=== PATIENT | male | born 1970 | race African-American/Black ===

== ENCOUNTER 2018-07-28 11:04 | Inpatient (IN) ==
[2018-07-28] MEDS ORDERED: Magnesium Sulfate Inj 2 GM in Sodium Chlor 0.9% Inj 96 ML IV.SIG ONE ×2 (11:09→12:10)
--- NOTE | 2018-07-28 11:22 | ED ---
HPI General Chief complaint: Shortness of Breath/Dyspnea Stated complaint: SOB Time Seen by Provider: 07/28/18 11:09 Source: patient, EMS and RN notes reviewed Mode of arrival: EMS History of Present Illness HPI narrative: 48yM brought in by EMS for respiratory distress. The patient reportedly has a history of asthma/ COPD, has had shortness of breath for the past several days and has been using a friend's nebulizer and OTC "sinus medications" with minimal relief of symptoms. His family called EMS today. The patient was somnolent on their arrival and remains somnolent here; he has no friends or family members with him and I am unable to obtain any further HPI, ROS, PMH/ PSH/ family or social history. The patient was given 125 mg solumedrol IV, duoneb x 1, and albuterol by EMS prior to arrival. Related Data Previous Rx's Medication Instructions Recorded albuterol sulfate 1.25 mg INHALATION Q6-8H PRN #90 ml 06/18/18 albuterol sulfate 2 inh INHALATION Q6-8H PRN #1 each 06/18/18 prednisone 20 mg PO BID #20 tab 06/18/18 Allergies Allergy/AdvReac Type Severity Reaction Status Date / Time No Known Allergies Allergy Verified 06/18/18 15:43 Review of Systems ROS Unobtainable ROS Unobtainable: unobtainable due to mental status PMFSH History History Provided By: Patient Medical History Medical History COPD (chronic obstructive pulmonary disease) (Acute) Surgical History Surgical History No history of previous surgery (Acute) Social History Social History Substance History: Unable to Obtain Second Hand Smoke Exposure: Yes Smoking Status: Unknown if ever smoked Tobacco Type: Cigarettes How Often Do You Have a Drink Containing Alcohol: Unable to Obtain Recent Travel in [facility] within the Last 8 Weeks: No Recent Out of Country Travel within the Last 8 Weeks: No Immunization History Tetanus Immunization: Unable to Assess Hx Influenza Vaccine This Season: Unable to Assess Exam Const Other: Sleepy, opens eyes to painful stimuli, acute respiratory distress HENMT Head: normocephalic and atraumatic Face and sinus: normal facial exam Eyes General: appearance normal, both eyes and all related structures Other: Pupils pinpoint bilaterally Chest Chest: normal inspection of the chest Resp Other: Moderate respiratory distress, tachypneic, non-verbal Full-field inspiratory and expiratory wheezing bilaterally O2 sats 98% on neb treatment Cardio Rate: regular rate Rhythm: regular rhythm GI Inspection: non-distended Palpation: soft and nontender Skin General: no rashes or lesions noted Neuro Other: Sleepy, arousable to painful stimuli, GCS 9 ([id number]), protecting airway Psych Other: Unable to assess Course Reevaluation(s) Reevaluation #1: Patient's is now at bedside, says the patient has had difficulty breathing for the past 3 days but became somnolent this morning. No history of intubations in the past, does not follow with a primary care doctor. (+) smoking history and polysubstance abuse. Patient still has significant wheezing, mental status unchanged, O2 sats mid 90s on nasal cannula. Will give another mag rider, albuterol neb, and SC terbutaline. Time: 12:11 Initial Documented Vital Signs Pulse Rate 88 07/28/18 11:10 Respiratory Rate 15 07/28/18 11:10 Blood Pressure 104/75 07/28/18 11:10 Pulse Oximetry 94 L 07/28/18 11:10 Last Documented Vital Signs Temperature 98.1 F 07/28/18 11:14 Pulse Rate 93 H 07/28/18 12:16 Respiratory Rate 14 07/28/18 12:16 Blood Pressure 104/75 07/28/18 11:14 Pulse Oximetry 98 07/28/18 11:29 Medical Decision Making [facility] Narrative Medical decision making narrative: Assessment: 48yM presenting with respiratory distress Plan: EKG and monitor CXR Nebs, IV magnesium, has already been given steroids prior to arrival ABG Labs Urine drug screen No acute indication for intubation at this point but patient remains at high risk for respiratory failure given level of respiratory distress Addendum: This patient requires ICU level of care for status asthmaticus. Case discussed with Dr. Pat. Patient's understands and agrees with plan. Medical Screen Exam Complete: Yes Emergency Medical Condition: Yes Differential Diagnosis Differential Diagnosis: Differential diagnosis includes, but is not limited to: COPD/ asthma exacerbation, pneumonia, pleural effusion, hypoxia/ hypercarbia, overdose (illicit drugs or OTC medications), hyperammonemia Medical Records Medical records reviewed: Yes I reviewed the patient's medical records. Seen in our department in 06/2018 for COPD exacerbation, admitted to IVDA (heroin ), discharged home after treatment. Lab Data Lab results reviewed: Yes I reviewed the patient's lab results. Result diagrams: 07/28/18 11:21 07/28/18 11:21 Lab Results 07/28/18 07/28/18 07/28/18 Range/Units 11:11 11:21 11:21 WBC 6.1 (4.0-11.0) th/mm3 RBC 4.86 (4.50-5.90) mil/mm3 Hgb 13.8 (13.0-17.0) gm/dL Hct 42.1 (39.0-51.0) % MCV 86.5 (80.0-100.0) fL MCH 28.3 (27.0-34.0) pg MCHC 32.7 (32.0-36.0) % RDW 14.5 (11.6-17.2) % Plt Count 290 (150-450) th/mm3 MPV 7.4 (7.0-11.0) fL Neut % (Auto) 65.7 (16.0-70.0) % Lymph % (Auto) 17.3 (9.0-44.0) % Spencer % (Auto) 10.1 H (0.0-8.0) % Eos % (Auto) 6.1 H (0.0-4.0) % Baso % (Auto) 0.8 (0.0-2.0) % Neut # (Auto) 4.0 (1.8-7.7) th/mm3 Lymph # (Auto) 1.1 (1.0-4.8) th/mm3 Spencer # (Auto) 0.6 (0.0-0.9) th/mm3 Eos # (Auto) 0.4 (0.0-0.4) th/mm3 Baso # (Auto) 0.0 (0.0-0.2) th/mm3 WBC Differential . Differential Comment Auto diff final Puncture Site Right radial Patient Temperature 98.6 O2 Saturation 86 L* (90-100) % ABG pH 7.33 L (7.380-7.420) ABG pCO2 53 H* (38-42) mmHg ABG pO2 56 L* (61-120) mmHg ABG HCO3 27 H (22-26) mmol/L ABG O2 Content 16.8 (12.0-20.0) Vol % ABG Base Excess 1.8 (-2-2) mmol/L ABG Methemoglobin 0.6 (0-2) % Asa Test Present Hemoglobin 13.9 (12.0-16.0) G/DL Carboxyhemoglobin 2.4 (0-4) % O2 Delivery Device Room air Inspired O2 21 % Critical Value Yes Sodium 141 (136-145) meq/L Potassium 4.1 (3.5-5.1) meq/L Chloride 103 (98-107) meq/L Carbon Dioxide 29.5 (21.0-32.0) meq/L Anion Gap 9 (5-15) meq/L BUN 16 (7-18) mg/dL Creatinine 2.02 H (0.60-1.30) mg/dL Estimated GFR 43 L (>89) mL/min Random Glucose 110 H (74-106) mg/dL Calcium 8.6 (8.5-10.1) mg/dL Total Bilirubin 0.3 (0.2-1.0) mg/dL AST 38 H (15-37) U/L ALT 63 (12-78) U/L Alkaline Phosphatase 71 (45-117) U/L Ammonia (11-32) mcmol/L Total Protein 8.3 H (6.4-8.2) g/dL Albumin 3.5 (3.4-5.0) g/dL Salicylates (2.8-20.0) mg/dL Acetaminophen Less than 2.0 L (10.0-30.0) mcg/mL 07/28/18 07/28/18 Range/Units 11:21 11:21 WBC (4.0-11.0) th/mm3 RBC (4.50-5.90) mil/mm3 Hgb (13.0-17.0) gm/dL Hct (39.0-51.0) % MCV (80.0-100.0) fL MCH (27.0-34.0) pg MCHC (32.0-36.0) % RDW (11.6-17.2) % Plt Count (150-450) th/mm3 MPV (7.0-11.0) fL Neut % (Auto) (16.0-70.0) % Lymph % (Auto) (9.0-44.0) % Spencer % (Auto) (0.0-8.0) % Eos % (Auto) (0.0-4.0) % Baso % (Auto) (0.0-2.0) % Neut # (Auto) (1.8-7.7) th/mm3 Lymph # (Auto) (1.0-4.8) th/mm3 Spencer # (Auto) (0.0-0.9) th/mm3 Eos # (Auto) (0.0-0.4) th/mm3 Baso # (Auto) (0.0-0.2) th/mm3 WBC Differential Differential Comment Puncture Site Patient Temperature O2 Saturation (90-100) % ABG pH (7.380-7.420) ABG pCO2 (38-42) mmHg ABG pO2 (61-120) mmHg ABG HCO3 (22-26) mmol/L ABG O2 Content (12.0-20.0) Vol % ABG Base Excess (-2-2) mmol/L ABG Methemoglobin (0-2) % Asa Test Hemoglobin (12.0-16.0) G/DL Carboxyhemoglobin (0-4) % O2 Delivery Device Inspired O2 % Critical Value Sodium (136-145) meq/L Potassium (3.5-5.1) meq/L Chloride (98-107) meq/L Carbon Dioxide (21.0-32.0) meq/L Anion Gap (5-15) meq/L BUN (7-18) mg/dL Creatinine (0.60-1.30) mg/dL Estimated GFR (>89) mL/min Random Glucose (74-106) mg/dL Calcium (8.5-10.1) mg/dL Total Bilirubin (0.2-1.0) mg/dL AST (15-37) U/L ALT (12-78) U/L Alkaline Phosphatase (45-117) U/L Ammonia 34 H (11-32) mcmol/L Total Protein (6.4-8.2) g/dL Albumin (3.4-5.0) g/dL Salicylates Less than 1.7 L (2.8-20.0) mg/dL Acetaminophen (10.0-30.0) mcg/mL Imaging Data Radiologist's impression: Chest X-Ray 07/28/18 11:09 CONCLUSION: Gaseous distention of the stomach is noted beneath the diaphragm. ECG Data Attestation: I personally reviewed and interpreted this ECG as follows: Interpretation: Rate: 93 BPM Rhythm: Sinus [place]: Normal Intervals: Normal intervals, no blocks, QTc 405 ms Q waves: III T waves: Upright, no inversions ST segments: No elevations or depressions Impression: Non-specific EKG. Inferior wall T wave inversions seen on EKG from no longer present. Discharge Plan Discharge Disposition Patient Disposition: 30 Still Patient Discharge Condition Condition: Critical Discharge Details Diagnosis: Status asthmaticus Physicians Team ED Provider: Elise Cartwright Rxs /Orders / Referrals /Forms Prescriptions: No Action albuterol sulfate 2.5 mg /3 mL (0.083 %) solution for nebulization 1.25 mg INHALATION Q6-8H PRN (Reason: shortness of breath or wheezing) Qty: 90 RF: 0 prednisone 20 mg tablet 20 mg PO BID Qty: 20 RF: 0 albuterol sulfate 90 mcg/actuation aerosol powdr breath activated 2 inh INHALATION Q6-8H PRN (Reason: shortness of breath or wheezing) Qty: 1 RF: 0 Discharge Interventions Interventions: Vital Signs Last Done: 07/28/18 11:14 Status ED Status: With Doctor
[2018-07-28 11:23] LABS: ABG Base Excess 1.8 mmol/L (-2-2); ABG PCO2 53 mmHg (38-42); ABG PO2 56 mmHg (61-120)
[2018-07-28] MEDS ORDERED: Sod Chloride 0.9% Inj 1,000 ML IV.SIG ONE ×2 (11:24→12:04)
--- NOTE | 2018-07-28 11:24 | XR ---
EXAM DATE: 07/28/2018 11:21 AM EDT AGE/SEX: 48 years / Male INDICATIONS: Respiratory disease CLINICAL DATA: This is the patient's initial encounter. Patient reports that signs and symptoms have been present for 1 day and indicates a pain score of Nonresponsive. MEDICAL/SURGICAL HISTORY: Non-responsive. Non-responsive. COMPARISON: . FINDINGS: A single AP view of the chest demonstrates the lungs to be symmetrically aerated without evidence of mass, infiltrate or effusion. The cardiomediastinal contours are unremarkable. Osseous structures a re intact. Moderate gaseous distention of the stomach. CONCLUSION: Gaseous distention of the stomach is noted beneath the diaphragm. Electronically signed by: Mc Hernandez MD 07/28/2018 11:23 AM EDT
[2018-07-28 11:34] LABS: Baso % (Auto) 0.8 % (0.0-2.0); Eos # (Auto) 0.4 th/mm3 (0.0-0.4); Eos % (Auto) 6.1 % (0.0-4.0); Hematocrit 42.1 % (39.0-51.0); Hemoglobin 13.8 gm/dL (13.0-17.0); Lymph # (Auto) 1.1 th/mm3 (1.0-4.8); Lymph % (Auto) 17.3 % (9.0-44.0); Mean Corpuscular HGB Conc 32.7 % (32.0-36.0); Mean Corpuscular Hemoglobin 28.3 pg (27.0-34.0); Mean Corpuscular Volume 86.5 fL (80.0-100.0); Mean Platelet Volume 7.4 fL (7.0-11.0); Mono # (Auto) 0.6 th/mm3 (0.0-0.9); Mono % (Auto) 10.1 % (0.0-8.0); Neut % (Auto) 65.7 % (16.0-70.0); Platelet Count 290 th/mm3 (150-450); Red Blood Count 4.86 mil/mm3 (4.50-5.90); Red Cell Distribution Width 14.5 % (11.6-17.2); White Blood Count 6.1 th/mm3 (4.0-11.0)
[2018-07-28 11:58] LABS: Alanine Aminotransferase 63 U/L (12-78); Albumin 3.5 g/dL (3.4-5.0); Anion Gap 9 meq/L (5-15); Aspartate Aminotransferase 38 U/L (15-37); Blood Urea Nitrogen 16 mg/dL (7-18); Calcium 8.6 mg/dL (8.5-10.1); Carbon Dioxide 29.5 meq/L (21.0-32.0); Chloride 103 meq/L (98-107); Glomerular Filtration Rate 43 mL/min (>89); Glucose,Random 110 mg/dL (74-106); Potassium 4.1 meq/L (3.5-5.1); Sodium 141 meq/L (136-145)
[2018-07-28 12:00] LABS: Alkaline Phosphatase 71 U/L (45-117); Total Protein 8.3 g/dL (6.4-8.2)
[2018-07-28] MEDS ORDERED: Sodium Phosphate Inj 30 MMOL in Sodium Chlor 0.9% Inj 250 ML IV.SIG PRN (12:37)
[2018-07-28] MEDS ORDERED: Potassium Phosphate Inj 30 MMOL in Sodium Chlor 0.9% Inj 250 ML IV.SIG PRN (12:37)
[2018-07-28] MEDS ORDERED: Magnesium Sulfate Inj 4 GM in Sodium Chlor 0.9% Inj 92 ML IV.SIG PRN (12:37)
[2018-07-28] MEDS ORDERED: Magnesium Oxide 400 MG Tablet PO PRN (12:37)
[2018-07-28] MEDS ORDERED: Magnesium Sulfate Inj 2 GM in Sodium Chlor 0.9% Inj 96 ML IV.SIG PRN (12:37)
[2018-07-28] MEDS ORDERED: Potassium Phosphate 500 MG Soluble Tablet PO PRN ×2 (12:37)
[2018-07-28] MEDS ORDERED: Potassium Chlor 40 mEq Premix 40 MEQ/100 ML PIGGYBACK IV.SIG PRN ×2 (12:37)
[2018-07-28] MEDS ORDERED: Potassium Chlor 20 mEq Premix 20 MEQ/100 ML PIGGYBACK IV.SIG PRN ×2 (12:37)
[2018-07-28] MEDS ORDERED: Bisacodyl 10 MG Supp RECTAL PRN (12:37)
[2018-07-28] MEDS ORDERED: Potassium Chloride 25 MEQ Effervescent Tablet PO PRN (12:37)
--- NOTE | 2018-07-28 12:46 | P.HPCC ---
History of Present Illness Service: critical Care medicine Chief Complaint: shortness of breath History of Present Illness: This is a 48-year-old male with a history of polysubstance abuse including heroin and cocaine and also a history of asthma and COPD, smoking who presents with altered mentation and severe shortness of breath. His is with him. He states that he was getting high today, but he has been felt feeling progressively short of breath over the last week or 2. From 1 of his friends he has borrowed an inhaler and has been using it every day. In the emergency department he was significantly hypoxemic requiring a nonrebreather mask. He has had 4 back to back DuoNeb's as well as 4 g of magnesium IV. He is still audibly wheezing from the door. He is now down to 4 L oxygen by nasal cannula. He is quite somnolent and nearly unarousable, but protects his airway with a vigorous gag and cough. Unfortunately, no additional information is available from the patient due to his mental status and somnolence. His denies recent complaints of cough, fever, chills, sputum production. ROS is unobtainable. Inpatient Certification: I certify that the inpatient services were ordered in accordance with Medicare regulations governing the order. This includes certification that hospital inpatient services are reasonable and necessary and in the case of services not specified as inpatient-only under 42 CFR 419.22(n), that they are appropriately provided as inpatient services in accordance to with the 2-midnight benchmark under 43 CFR 412.3(e) Estimated Total Length of Stay (Days): 4 Plans for Post Hospital Care: Not yet determined Review of Systems unobtainable due to mental status PMF - History History Provided By: Family Member - Medical / Surgical Hx Neg / Unobtainable Medical Problems Denied: Unable to Obtain Surgical History: Unable to Obtain - Medical History Medical History: Medical History (Last Reviewed 07/28/18 @ 13:30 by Kg Pat MD) COPD (chronic obstructive pulmonary disease) - Surgical History Surgical History: Surgical History (Last Reviewed 07/28/18 @ 13:30 by Kg Pat MD) No history of previous surgery - Family History Family History: Family History (Last Updated 07/28/18 @ 13:31 by Kg Pat MD) Other Family history non-contributory - Social History I have reviewed the patient's Social History: Yes - Tobacco History Second Hand Smoke Exposure: Yes Smoking Status: Unknown if ever smoked Tobacco Type: Cigarettes - Alcohol History How Often Do You Have a Drink Containing Alcohol: Unable to Obtain - Substance Use History Substance History: Unable to Obtain - Travel History Recent Travel in the [place] Within the Last 8 Weeks: No Recent Travel Out of the Country Within the Last 8 Weeks: No - Immunization History Tetanus Immunization: Unable to Assess Hx Influenza Vaccine This Season: Unable to Assess Medications and Allergies Active Medications: Active Medications Magnesium Sulfate Inj 2 gm/ (Sodium Chloride) 100 mls @ 50 mls/hr IV.SIG ONCE ONE Stop: 07/28/18 13:08 Last Admin: 07/28/18 11:38 Dose: 50 mls/hr Magnesium Sulfate Inj 2 gm/ (Sodium Chloride) 100 mls @ 50 mls/hr IV.SIG ONCE ONE Stop: 07/28/18 14:09 Sodium Chloride (Ns Flush) 2 ml IV.FLUSH PRN PRN PRN Reason: FLUSH AFTER USING IV ACCESS Allergies Allergy/AdvReac Type Severity Reaction Status Date / Time No Known Allergies Allergy Verified 06/18/18 15:43 Results - Labs CBC & Chem 7: 07/28/18 11:21 07/28/18 11:21 Labs: Short CBC 07/28/18 Range/Units 11:21 WBC 6.1 (4.0-11.0) th/mm3 Hgb 13.8 (13.0-17.0) gm/dL Hct 42.1 (39.0-51.0) % Plt Count 290 (150-450) th/mm3 BMP 07/28/18 11:21 Sodium 141 Potassium 4.1 Chloride 103 Carbon Dioxide 29.5 BUN 16 Creatinine 2.02 H Calcium 8.6 Liver Function 07/28/18 Range/Units 11:21 Total Bilirubin 0.3 (0.2-1.0) mg/dL AST 38 H (15-37) U/L ALT 63 (12-78) U/L Alkaline Phosphatase 71 (45-117) U/L Albumin 3.5 (3.4-5.0) g/dL - Imaging Impressions Chest X-Ray 07/28/18 11:09 CONCLUSION: Gaseous distention of the stomach is noted beneath the diaphragm. Exam Vital signs: Vital Signs 07/28/18 11:10 07/28/18 11:14 07/28/18 11:29 Temperature 36.7 C Pulse Rate 88 88 Respiratory Rate 15 16 Blood Pressure 104/75 104/75 Pulse Oximetry 94 L 91 L 98 07/28/18 11:30 07/28/18 11:31 07/28/18 12:16 Temperature Pulse Rate 90 93 H 93 H Respiratory Rate 14 15 14 Blood Pressure Pulse Oximetry Intake & Output 07/27/18 07/28/18 07/28/18 18:59 06:59 18:59 Weight 79.379 kg Narrative: GENERAL: Middle-age male, lying in bed, somnolent, only arousable to deep sternal rub. HEENT: Normocephalic. Atraumatic. Pupils pinpoint, equal, round, reactive, conjugate. Mucous membranes are dry NECK: Trachea is midline. There is no JVD. CHEST: Equal chest rise. Some mild intercostal retractions. Audible inspiratory and expiratory wheezing. Vigorous cough and gag. Protect airway. Nasal cannula oxygen. CARDIOVASCULAR: Tachycardic rate, regular rhythm. Sinus. ABDOMEN: Soft, nontender, nondistended. No guarding. MUSCULOSKELETAL: Pulses 2+. No peripheral edema. NEUROLOGICAL: RASS -3. Only arouses to deep sternal rub. Briskly purposeful. Does not follow commands. Moves all 4 extremities. No focal deficits. Caprini VTE Risk Assessment Caprini VTE Risk Assessment: Moderate/High Risk (score >= 2) Caprini Risk Assessment Model: Point Value = 1 Point Value = 2 Point Value = 3 Point Value = 5 Age 41-60 Minor surgery BMI > 25 kg/m2 Swollen legs Varicose veins or History of unexplained or recurrent spontaneous Oral contraceptives or hormone replacement Sepsis (< 1 month) Serious lung disease, including pneumonia (< 1 month) Abnormal pulmonary function Acute myocardial infarction Congestive heart failure (< 1 month) History of inflammatory bowel disease Medical patient at bed rest Age 61-74 Arthroscopic surgery Major open surgery (> 45 min) Laparoscopic surgery (> 45 min) Malignancy Confined to bed (> 72 hours) Immobilizing plaster cast Central venous access Age >= 75 History of VTE Family history of VTE Factor V Leiden Prothrombin [id number] Lupus anticoagulant Anticardiolipin antibodies Elevated serum homocysteine Heparin-induced thrombocytopenia Other congenital or acquired thrombophilia Stroke (< 1 month) Elective arthroplasty Hip, pelvis, or leg fracture Acute spinal cord injury (< 1 month) Prophylaxis Regimen: Total Risk Factor Score Risk Level Prophylaxis Regimen 0-1 Low Early ambulation 2 Moderate Order ONE of the following: *Sequential Compression Device (SCD) *Heparin 5000 units SQ BID 3-4 Higher Order ONE of the following medications: *Heparin 5000 units SQ TID *Enoxaparin/Lovenox 40 mg SQ daily (WT < 150 kg, CrCl > 30 mL/min) *Enoxaparin/Lovenox 30 mg SQ daily (WT < 150 kg, CrCl > 10-29 mL/min) *Enoxaparin/Lovenox 30 mg SQ BID (WT < 150 kg, CrCl > 30 mL/min) AND/OR *Sequential Compression Device (SCD) 5 or more Highest Order ONE of the following medications: *Heparin 5000 units SQ TID (Preferred with Epidurals) *Enoxaparin/Lovenox 40 mg SQ daily (WT < 150 kg, CrCl > 30 mL/min) *Enoxaparin/Lovenox 30 mg SQ daily (WT < 150 kg, CrCl > 10-29 mL/min) *Enoxaparin/Lovenox 30 mg SQ BID (WT < 150 kg, CrCl > 30 mL/min) AND *Sequential Compression Device (SCD) Assessment and Plan - Assessment and Plan Plan: Assessment: 48yM with toxic encephalopathy secondary to polysubstance abuse and severe asthma/COPD exacerbation. Counseled the patient's extensively about his life-threatening substance abuse, as well as the risk of respiratory failure and from his poorly compliant asthma/COPD. The patient's seems very concerned about his asthma, although she states that she is known for a long time that his drug abuse is "not good for him ". He is critically at this time with life-threatening encephalopathy and hypoxemia. Will need to be admitted to the ICU for close monitoring, and nebs, steroids, close mental status watch. Toxic Encephalopathy - frequent neuro checks - avoid long-acting sedatives - if mental status declines, may require intubation Polysubstance abuse - UDS pending - watch for signs of withdraw - iv thiamine and mvi Acute Severe Asthma/COPD Exacerbation - iv steroids - pulm consult - serial nebs - aggressive pulmonary toilet - may need more iv magnesium - no infectious etiology suspected: no history to suggest infection- will not cover with abx at this time. - daily cbc. Acute hypoxic respiratory failure - may need intubation or bipap if he continues to worsen - recheck ABG this afternoon - pulm toilet - wean fio2 for goal spo2 > 90% - OOB when mental status improves Acute kidney injury - likely secondary to dehydration from polysubstance use - could be ischemic injury from hypoxemia - ivf hydration - close uop monitoring - daily bmp, mg, phos. SCDs, Lovenox advance diet when mental status improves. Critical care time: 31 minutes, exclusive of separately billable procedures. Actively managed encephalopathy, kidney injury, re-evaluating hypoxemia and bronchospasm.
[2018-07-28] MEDS ORDERED: Multivitamin Inj 10 ML, Thiamine Inj 100 MG, Folic Acid Inj 1 MG in Sodium Chlor 0.9% I... IV.SIG SCH (14:00)
[2018-07-28] MEDS ORDERED: Enoxaparin Inj 40 MG/0.4 ML Syringe SQ SCH (14:00)
[2018-07-28] MEDS ORDERED: MethylPREDNISolone Sod Succinate Inj 40 MG/ML Vial IV.PUSH SCH ×2 (14:00→15:00)
[2018-07-28] MEDS ORDERED: Dextrose 5%/NaCl 0.45% Inj 1,000 ML IV.CONT SCH (14:30)
[2018-07-28] MEDS ORDERED: Azithromycin Inj 500 MG in Sodium Chlor 0.9% Inj 250 ML IV.SIG SCH (15:00)
[2018-07-28 15:11] LABS: ABG Base Excess -0.8 mmol/L (-2-2); ABG PCO2 48 mmHg (38-42); ABG PO2 75 mmHG (61-120)
[2018-07-28 16:33] LABS: Amphetamine Screen,Urine Pos (Neg); Barbiturate Screen,Urine Neg (Neg); Cannabinoid Screen,Urine Pos (Neg); Cocaine Screen,Urine Pos (Neg)
[2018-07-28 16:40] LABS: Opiate Screen,Urine Pos (Neg)
--- NOTE | 2018-07-28 18:31 | MB ---
cc: Mima Childress MD DATE: 07/28/2018 REASON FOR CONSULTATION: Respiratory failure and asthma. HISTORY OF PRESENT ILLNESS: This is a 48-year-old man with a history of multidrug abuse including cocaine and heroin, who has been admitted with severe shortness of breath, wheezing and an asthmatic attack. The patient apparently had been getting more short of breath over the past week and has been using albuterol inhaler with no benefit and thus was brought to the emergency room and was in respiratory failure. Initially, he was on a nonrebreather mask, subsequently switched to a nasal cannula and now he has received IV Solu-Medrol, IV magnesium and DuoNeb nebulizer solution. He is doing better and his nasal cannula is at 4 liters. Saturation is 99%. The patient still is somewhat confused, lethargic, unable to provide any meaningful history or details of his complaints. He is not running any fever. He denied any chest pains and he has had no nausea, vomiting or aspiration. Chest x-ray done upon admission only showed hyperinflation, but no evidence of any active infiltrate. It showed gaseous distention of the stomach. ALLERGIES: NO DRUG ALLERGIES ARE NOTED. HABITS: The patient apparently has a history of smoking cigarettes, details unknown. Other drugs, apparently positive for other drug use. FAMILY HISTORY: Noncontributory. REVIEW OF SYSTEMS: Unable to obtain. PHYSICAL EXAMINATION: GENERAL: This is an averagely built, middle-aged, male who is lethargic but arousable. He moves all his extremities and he is in no acute respiratory distress. VITAL SIGNS: Blood pressure 110/70, pulse 90, respirations 22, temperature 97.5. HEENT: Head is normocephalic. Pupils are reactive. Sclerae are clear. Nasal mucosa edematous. Throat is clear. Tongue is dry. NECK: Supple. No bruits. No thyroid enlargement or lymphadenopathy. CHEST: Distant breath sounds with expiratory wheezes throughout both lung strong, prolonged expirations. HEART: Sounds are irregular. S1 and S2 with no murmur. ABDOMEN: Soft, scaphoid. No mass, no organomegaly. Bowel sounds are active. EXTREMITIES: No edema. NEUROLOGIC: Normal reflexes. He does move all his extremities well. Babinski negative. SKIN: Dry and warm. RECTAL: Deferred. IMPRESSION: 1. Acute hypoxemic respiratory failure. 2. Asthmatic bronchitis. 3. Polysubstance abuse. 4. Dehydration. PLAN: The patient will be maintained on O2 at 2.5 liters and sats kept over 92. Nebulized DuoNeb solution added q.6 hours and p.r.n. Continue with Solu-Medrol 40 mg IV q.6 hours and we will add Zithromax 500 mg IV daily. We will also get a blood gas study on nasal cannula. Symbicort 160/4.5 mcg 1 puff twice daily was added, and a chest CT will be obtained in the a.m. Thank you, Dr. Pat, for this consultation. V. Uriel Childress MD VJD/jl , 04:44 PM , 04:53 PM
[2018-07-28] MEDS ORDERED: Polyethylene Glycol 3350 17 GM Packet PO SCH (21:00)
[2018-07-28] MEDS ORDERED: Budesonide-Formoterol 160/4.5 MCG 6 GM Inhaler INH SCH (21:00)
[2018-07-28] MEDS ORDERED: Senna/Docusate Sodium 8.6/50 MG Tablet PO SCH (21:00)
[2018-07-29] MEDS ORDERED: Chlorhexidine Gluconate 2% 1 Pack (2 Cloths) TOPICAL PRN (04:00)
[2018-07-29] MEDS ORDERED: Chlorhexidine Gluconate 2% 1 Pack (2 Cloths) TOPICAL SCH (04:00)
[2018-07-29] MEDS ORDERED: Folic Acid 1 MG Tablet PO SCH (09:00)
--- NOTE | 2018-07-29 20:35 | ECG ---
Date Performed: 07/28/2018 Time Performed: 11:10:36 PTAGE: 48 years EKG: Sinus rhythm NONSPECIFIC T-WAVE ABNORMALITY BORDERLINE ECG INTERPRETATION BASED ON A DEFAULT AGE OF 40 YEARS PREVIOUS TRACING : 06/18/2018 15.34 Compared to previous tracing, there has been an incre ase in left ventricular voltage . The prominent nonspecific inferior T-wave changes have resolved. Cl inical correlation is recommended DOCTOR: Laura Orta Interpretating Date/Time 07/29/2018 20:33:12
== END 2018-07-28 22:10 | disposition left against medical advice (07) ==
LOC: NEPE 11:04 → NEDA 12:55 → HIMC 14:04
PROVIDERS: ADMIT Internal Medicine Critical Care Medicine; ATTEND Internal Medicine Critical Care Medicine